=== PATIENT | male | born 2000 ===

== ENCOUNTER 2019-04-10 16:55 | Emergency (ER) | payer OTHER ==
[2019-04-10 17:41] LABS: Bilirubin Negative (Negative); Blood, Urine Trace (Negative); Clarity Clear (Clear); Glucose, Urine (Dipstick) Normal (Negative); Leukocyte Negative Leu/uL (Negative); Nitrite Negative (Negative); Protein, Urine (Dipstick) 30 mg/dL (Neg-Trace); Squamous Epithelial None Seen HPF (0-3); WBC/HPF 0-3 HPF (0-3)
[2019-04-10 17:48] LABS: Bacteria/HPF 1+ HPF (None Seen); Sperm/HPF 1+ HPF (None Seen)
--- NOTE | 2019-04-10 19:41 | ULT ---
TESTICULAR ULTRASOUND WITH SUNG SCALE, COLOR FLOW AND SPECTRAL DOPPLER IMAGIN04/10/19 HISTORY: Right testicular and groin pain. FINDINGS: The right testis measures 4.2 x 3.1 x 2.1 cm and the left testis measures 3.5 x 1.7 x 2.8 cm. Symmetr ic blood flow is seen to both testicles and epididymi. No testicular mass is seen. No hydrocele noted . The left epididymis is normal. There is a 14 mm cyst in the right epididymal head. There are tubular structures with increased flow during Valsalva in the left inguinal region. IMPRESSION: 1. No evidence of testicular mass or torsion. 2. Right epididymal head cyst/spermatocele. 3. Prominent vessels in the left inguinal canal likely due to engorged spermatic veins, less lik sally varicocele. POS: MEGHNA
[2019-04-10] MEDS ORDERED: cefTRIAXone\\ROCEPHIN 250 MG VIAL ONE (20:14)
[2019-04-10] MEDS ORDERED: Lidocaine 1% PF 5 ML VIAL ONE (20:14)
== END 2019-04-10 20:42 | disposition home or self-care (01) ==
LOC: ERS 16:55
DX: N45.1 Epididymitis (principal)
CPT/HCPCS: 76870; 81003; 81015; 96372; J0696; J2001